=== PATIENT | female | born 1990 | race Caucasian/White ===

== ENCOUNTER 2019-02-09 03:40 | Emergency (ER) | payer SELFPAY ==
[~2019-02-09] VITALS: Ht 157.5 cm; Wt 139.7 kg
[2019-02-09 03:53] VITALS: Ht 157.5 cm; Wt 139.7 kg
[2019-02-09] MEDS ORDERED: ONDANSETRON (ODT) 4 MG TAB ODT STA (06:18)
[2019-02-09] MEDS ORDERED: BELLADONNA/PHENOBARBITAL TAB PO STA (06:18)
[2019-02-09] MEDS ORDERED: LIDOCAINE/MYLANTA 40 ML BTL PO STA (06:18)
[2019-02-09] MEDS ORDERED: HYDROCODONE/APAP (5/325) TAB PO ONE (06:30)
[2019-02-09] MEDS ORDERED: ACET500C5 PO (08:30)
[2019-02-09] MEDS ORDERED: SUCR1TAB56 PO (08:30)
[2019-02-09 08:42] VITALS: BP 159/82; PULSE 59; RESP 18
--- NOTE | 2019-02-09 12:36 | ERD ---
ER Documentation Chief Complaint Chief Complaint epigastric pain since yesterday HPI 28-year-old female presenting with epigastric pain times 2 days. She had one episode of vomiting today. She has no fevers. No change in urination or bowel movement. Denies medical problems. NKDA. Surgical history denies. Social history denies ROS All systems reviewed and are negative except as per history of present illness. Medications Home Meds Active Scripts Acetaminophen* (Tylophen*) 500 Mg Capsule, 1 CAP PO Q6H PRN for PAIN AND OR ELEVATED TEMP, #20 CAP Prov:RAQUEL COTTRELL PA-C 02/09/19 Sucralfate* (Carafate*) 1 Gm Tab, 1 GM PO QID, #20 TAB Prov:RAQUEL COTTRELL PA-C 02/09/19 Allergies Allergies: Coded Allergies: No Known Drug Allergies (Verified Allergy, Unknown, 02/09/19) PMhx/Soc Medical and Surgical Hx: pt denies Medical Hx, pt denies Surgical Hx Hx Alcohol Use: No Hx Substance Use: No Hx Tobacco Use: No Smoking Status: Never smoker FmHx Family History: No diabetes, No coronary disease, No other Physical Exam Vitals Vital Signs Date Temp Pulse Resp B/P (MAP) Pulse Ox O2 O2 Flow FiO2 Time Delivery Rate 02/09/19 97.9 59 18 159/82 100 Room Air 08:42 (107) 02/09/19 98.7 75 18 173/76 99 03:53 (108) Physical Exam GENERAL: The patient is well-appearing, well-nourished, in no acute distress. CHEST: Clear to auscultation bilaterally. There are no rales, wheezes or rhonchi. HEART: Regular rate and rhythm. No murmurs, clicks, rubs or gallops. No S3 or S4. ABDOMEN: Normal active bowel sounds. No distention. No organomegaly. Mild tenderness palpation epigastric region. No rebound tenderness. Result Diagram: 02/09/19 0641 02/09/19 0641 Results 24 hrs Laboratory Tests Test 02/09/19 06:33 02/09/19 06:34 02/09/19 06:41 Bedside Urine pH (LAB) 6.0 Bedside Urine Protein (LAB) Trace Bedside Urine Glucose (UA) Negative Bedside Urine Ketones (LAB) Negative Bedside Urine Blood Negative Bedside Urine Nitrite (LAB) Negative Bedside Urine Leukocyte Esterase Negative (L POC Beta HCG, Qualitative NEGATIVE White Blood Count 10.6 10^3/ul Red Blood Count 4.85 10^6/ul Hemoglobin 12.7 g/dl Hematocrit 40.4 % Mean Corpuscular Volume 83.3 fl Mean Corpuscular Hemoglobin 26.2 pg Mean Corpuscular 31.4 g/dl Hemoglobin Concent Red Cell Distribution Width 13.9 % Platelet Count 327 10^3/UL Mean Platelet Volume 9.0 fl Immature Granulocytes % 0.600 % Neutrophils % 69.8 % Lymphocytes % 23.0 % Monocytes % 5.6 % Eosinophils % 0.7 % Basophils % 0.3 % Nucleated Red Blood Cells % 0.0 /100WBC Immature Granulocytes # 0.060 10^3/ul Neutrophils # 7.4 10^3/ul Lymphocytes # 2.5 10^3/ul Monocytes # 0.6 10^3/ul Eosinophils # 0.1 10^3/ul Basophils # 0.0 10^3/ul Nucleated Red Blood Cells # 0.0 10^3/ul Urine Color YELLOW Urine Clarity CLEAR Urine pH 5.0 Urine Specific [place] 1.026 Urine Ketones TRACE mg/dL Urine Nitrite NEGATIVE mg/dL Urine Bilirubin NEGATIVE mg/dL Urine Urobilinogen 1+ mg/dL Urine Leukocyte Esterase NEGATIVE [place]/ul Urine Hemoglobin NEGATIVE mg/dL Urine Glucose NEGATIVE mg/dL Urine Total Protein NEGATIVE mg/dl Sodium Level 141 mmol/L Potassium Level 4.1 mmol/L Chloride Level 104 mmol/L Carbon Dioxide Level 27 mmol/L Anion Gap 10 Blood Urea Nitrogen 9 mg/dl Creatinine 0.55 mg/dl Est Glomerular Filtrat > 60 mL/min Rate mL/min Glucose Level 115 mg/dl Calcium Level 8.8 mg/dl Total Bilirubin 0.3 mg/dl Direct Bilirubin 0.00 mg/dl Indirect Bilirubin 0.3 mg/dl Aspartate Amino Transf (AST/SGOT) 25 IU/L Alanine 26 IU/L Aminotransferase (ALT/SGPT) Alkaline Phosphatase 97 IU/L Total Protein 8.2 g/dl Albumin 4.2 g/dl Globulin 4.00 g/dl Albumin/Globulin Ratio 1.05 Lipase 59 U/L Current Medications Medications Dose Sig/Reyes Start Time Status Last (Trade) Ordered Route PRN Stop Time Admin Dose Reason Admin 40 ml ONCE STAT 02/09/19 DC 02/09/19 Miscellaneous PO 06:18 06:48 Medication 02/09/19 06:20 (Gi Cocktail (2)) Belladonna/ 2 tab ONCE STAT 02/09/19 DC 02/09/19 Phenobarbital PO 06:18 06:48 () 02/09/19 06:20 1 tab ONCE ONCE 02/09/19 DC Acetaminophen PO 06:30 / 02/09/19 06:31 Hydrocodone Bitart (Viola (5/325)) Ondansetron 4 mg ONCE STAT 02/09/19 DC 02/09/19 HCl (Zofran ODT 06:18 06:48 Odt) 02/09/19 06:20 Procedures/MDM DIAGNOSTIC IMAGING REPORT Patient: JERI MORALES : 1990 Age: 28 Sex: F MR #: [id number] DOS: 02/09/1918 Ordering MD: DAQUAN COTTRELL PA-C Location: [facility] Room/Bed: PROCEDURE: US Abdomen. CLINICAL INDICATION: abdominal pain TECHNIQUE: Multiple real-time images were acquired of the patient's right upper quadrant abdomen and retroperitoneum utilizing a high resolution transducer. COMPARISON: None FINDINGS: The study is limited due to the patient's body habitus. The liver demonstrates slightly increased echogenicity. The liver is enlarged in size and no focal solid lesions are seen. The liver measures 18.6 cm in length. The portal vein is patent with normal direction of flow. No intrahepatic biliary dilatation is seen. No gallstones are identified within the gallbladder. There is no pericholecystic fluid or gallbladder wall thickening. The common bile duct measures 3 mm in maximal dimension. The visualized portions of the pancreas are unremarkable. The tail of the pancreas is not seen. No free fluid is identified. The right kidney is normal in size, and demonstrate normal echogenicity and cortical thickness. The right kidney measures 10.8 cm in long dimension. There is no evidence of hydronephrosis. There are no kidney stones. RPTAT: AA IMPRESSION: No evidence of gallstones. Mild hepatomegaly with fatty infiltration of the liver. MDM: 28-year-old female presents with epigastric pain. I have low suspicion for choledocholithiasis, cholecystitis, cholangitis or pancreatitis. Patient's exam is non-concerning. Patient likely has ulcer or gastritis. I do not feel that further workup or imaging was indicated. Patient is discharged stricter precautions and told to follow-up with primary care within 1-2 days for close evaluation. Patient is told symptoms change or worsen to return to the ER immediately. All questions answered at discharge Departure Diagnosis: Primary Impression: Epigastric pain Condition: Stable Patient Instructions: Epigastric Pain (Uncertain Cause) Referrals: [facility] YOU HAVE RECEIVED A MEDICAL SCREENING EXAM AND THE RESULTS INDICATE THAT YOU DO NOT HAVE A CONDITION THAT REQUIRES URGENT TREATMENT IN THE EMERGENCY DEPARTMENT. FURTHER EVALUATION AND TREATMENT OF YOUR CONDITION CAN WAIT UNTIL YOU ARE SEEN IN YOUR DOCTORS OFFICE WITHIN THE NEXT 1-2 DAYS. IT IS YOUR RESPONSIBILITY TO MAKE AN APPOINTMENT FOR FOLOW-UP CARE. IF YOU HAVE A PRIMARY DOCTOR --you should call your primary doctor and schedule an appointment IF YOU DO NOT HAVE A PRIMARY DOCTOR YOU CAN CALL OUR PHYSICIAN REFERRAL HOTLINE AT IF YOU CAN NOT AFFORD TO SEE A PHYSICIAN YOU CAN CHOSE FROM THE FOLLOWING [facility] [address] [facility] [address] [facility] [facility] [address] [facility] [facility] [address] [facility] [address] [facility]. [facility]. [address] Additional Instructions: FOLLOW UP WITH YOUR PRIMARY CARE PHYSICIAN TOMORROW.Return to this facility if you are not improving as expected. RAQUEL COTTRELL PA-C Feb 09, 2019 12:36
== END 2019-02-09 08:43 | disposition home or self-care (01) ==
LOC: FTE 03:40
DX: R10.13 Epigastric pain (principal); R11.10 Vomiting, unspecified
CPT/HCPCS: 36415; 76705; 80053; 81003; 81025; 83690; 85025